=== PATIENT | female | born 1965 | race Caucasian/White ===

== ENCOUNTER 2020-12-09 14:58 | Emergency (ER) | payer BC, OTHER ==
[~2020-12-09] VITALS: Ht 162.6 cm; Wt 94.5 kg
[2020-12-09] MEDS ORDERED: METO25TA4 PO (15:17)
[2020-12-09] MEDS ORDERED: LABETALOL 100MG/20ML VIAL IV STA (15:50)
[2020-12-09] MEDS ORDERED: ASPIRIN 81 MG CHEW TABLET PO ONE (15:50)
[2020-12-09] MEDS ORDERED: METOPROLOL TART 25 MG TABLET PO ONE (15:50)
[2020-12-09] MEDS ORDERED: LORazepam 2 MG/ML VIAL IV STA (15:50)
[2020-12-09] MEDS ORDERED: NS 1,000 ML IV SCH (15:50)
[2020-12-09 16:17] LABS: BASO # 0.1 10^3/uL (0.0-0.2); BASO % 0.6 % (0.0-1.0); EOS # 0.1 10^3/uL (0.0-0.5); EOS % 1.3 % (0.0-3.0); HEMATOCRIT 42.5 % (36.0-47.0); HEMOGLOBIN 14.5 g/dl (12.0-15.5); LYMPH # 1.6 10^3/uL (1.5-5.0); LYMPH % 17.4 % (24.0-44.0); MEAN CORPUSCULAR HEMOGLOBIN 29.2 pg (27.0-33.0); MEAN CORPUSCULAR HGB CONC 34.1 g/dl (32.0-36.5); MEAN CORPUSCULAR VOLUME 85.5 fl (80.0-96.0); MONO # 0.6 10^3/uL (0.0-0.8); MONO % 6.5 % (2.0-8.0); NEUTROPHILS # 6.7 10^3/uL (1.5-8.5); NEUTROPHILS % 73.9 % (36.0-66.0); PLATELET COUNT, AUTOMATED 295 10^3/uL (150-450); RED BLOOD COUNT 4.97 10^6/uL (4.00-5.40); WHITE BLOOD COUNT 9.1 10^3/uL (4.0-10.0)
--- NOTE | 2020-12-09 16:21 | REP ---
INDICATION: CHEST PAIN. COMPARISON: No comparison chest x-ray. TECHNIQUE: Portable upright AP chest radiograph. FINDINGS: The lungs are well inflated and free of infiltrate. Pleural angles are sharp. Heart size is normal. Pulmonary vasculature is not increased. EKG monitoring electrodes are seen. IMPRESSION: No active disease. <Electronically signed by Kwadwo Ruggiero > 12/09/20 [id number]
[2020-12-09 16:27] LABS: INR 0.88; PROTHROMBIN TIME 12.2 SECONDS (12.5-14.3)
[2020-12-09 16:39] VITALS: BP 166/107
[2020-12-09 16:45] LABS: ALBUMIN 3.8 GM/DL (3.2-5.2); ALT/SGPT 34 U/L (12-78); BILIRUBIN,DIRECT 0.1 MG/DL (0.0-0.2); BILIRUBIN,TOTAL 0.7 MG/DL (0.2-1.0); BLOOD UREA NITROGEN 18 MG/DL (7-18); CALCIUM LEVEL 9.8 MG/DL (8.5-10.1); CARBON DIOXIDE LEVEL 31 MEQ/L (21-32); CHLORIDE LEVEL 108 MEQ/L (98-107); CK-MB VALUE MASS < 1.0 NG/ML (<3.6); CPK CREATINE PHOSPHOKINASE 85 U/L (26-192); CREATININE FOR GFR 0.92 MG/DL (0.55-1.30); GLOMERULAR FILTRATION RATE > 60.0 (>51); GLUCOSE, FASTING 100 MG/DL (70-100); LIPASE 110 U/L (73-393); MB/CK RELATIVE INDEX 1.18 (< OR =4); NT-PRO BNP 54 PG/ML (<125); POTASSIUM SERUM 3.6 MEQ/L (3.5-5.1); SODIUM LEVEL 142 MEQ/L (136-145); TOTAL PROTEIN 7.9 GM/DL (6.4-8.2); TROPONIN I < 0.02 NG/ML (< 0.10)
[2020-12-09 17:30] VITALS: BP 130/87
--- NOTE | 2020-12-10 07:38 | ECGEPIP ---
[facility] - ED Test Date: 2020-12-09 Pat Name: RADHA GLOVER Department: Room: - Gender: Female [employer]: ROSE : 1965 Requested By: Julian Enriquez Order Number: [id number] Reading MD: Martha Villanueva Measurements Intervals [place] Rate: 96 P: 34 UT: 178 QRS: 2 QRSD: 72 T: 28 QT: 338 QTc: 427 Interpretive Statements Normal sinus rhythm Minimal voltage criteria for LVH, may be normal variant ( R in aVL ) Cannot rule out Anterior infarct , age undetermined No prior Electronically Signed on 12-10-2020 7:37:40 EDT by Martha Villanueva
== END 2020-12-09 17:55 | disposition home or self-care (01) ==
LOC: M ED 14:58
DX: F41.9 Anxiety disorder, unspecified (principal); I10 Essential (primary) hypertension; F33.9 Major depressive disorder, recurrent, unspecified; Z88.1 Allergy status to other antibiotic agents; Z88.2 Allergy status to sulfonamides; Z88.8 Allergy status to other drugs, medicaments and biological substances; Z79.899 Other long term (current) drug therapy
CPT/HCPCS: 36415; 71045; 80048; 80076; 82550; 82553; 83690; 83880; 84484; 85025; 85610; 93005; 93041; 94760; 96361; 96374; 96375; 99285; J2060

== ENCOUNTER 2022-01-28 11:44 | Emergency (ER) | payer BC, OTHER ==
[~2022-01-28] VITALS: Ht 162.6 cm; Wt 99.9 kg
[~2022-01-28 11:44] MED LIST: METO25TA4 PO
[2022-01-28] MEDS ORDERED: ESCITALOPRAM (11:54)
[2022-01-28] MEDS ORDERED: METO1TAB32 (11:54)
[2022-01-28 17:13] LABS: BASO % 0.8 % (0.0-1.0); EOS # 0.1 10^3/uL (0.0-0.5); EOS % 1.4 % (0.0-3.0); HEMATOCRIT 42.2 % (36.0-47.0); HEMOGLOBIN 14.1 g/dl (12.0-15.5); LYMPH # 0.6 10^3/uL (1.5-5.0); LYMPH % 11.8 % (24.0-44.0); MEAN CORPUSCULAR HGB CONC 33.4 g/dl (32.0-36.5); MEAN CORPUSCULAR VOLUME 86.7 fl (80.0-96.0); MONO # 0.4 10^3/uL (0.0-0.8); MONO % 9.1 % (2.0-8.0); NEUTROPHILS # 3.7 10^3/uL (1.5-8.5); NEUTROPHILS % 76.7 % (36.0-66.0); PLATELET COUNT, AUTOMATED 244 10^3/uL (150-450); RED BLOOD COUNT 4.87 10^6/uL (4.00-5.40); WHITE BLOOD COUNT 4.9 10^3/uL (4.0-10.0)
[2022-01-28 17:32] LABS: ALBUMIN 3.9 GM/DL (3.2-5.2); ALT/SGPT 31 U/L (12-78); BILIRUBIN,TOTAL 0.8 MG/DL (0.2-1.0); BLOOD UREA NITROGEN 7 MG/DL (7-18); CALCIUM LEVEL 9.9 MG/DL (8.5-10.1); CARBON DIOXIDE LEVEL 29 MEQ/L (21-32); CHLORIDE LEVEL 108 MEQ/L (98-107); CREATININE FOR GFR 0.72 MG/DL (0.55-1.30); GLOMERULAR FILTRATION RATE > 60.0 (>51); GLUCOSE, FASTING 95 MG/DL (70-100); POTASSIUM SERUM 3.9 MEQ/L (3.5-5.1); SODIUM LEVEL 141 MEQ/L (136-145); TOTAL PROTEIN 7.6 GM/DL (6.4-8.2)
[2022-01-28] MEDS ORDERED: LORazepam 0.5 MG TAB PO STA (17:48)
[2022-01-28 18:01] VITALS: BP 160/86
== END 2022-01-28 18:09 | disposition home or self-care (01) ==
LOC: M ED 11:44
DX: I10 Essential (primary) hypertension (principal); F41.9 Anxiety disorder, unspecified; K21.9 Gastro-esophageal reflux disease without esophagitis; F32.A Depression, unspecified; Z88.2 Allergy status to sulfonamides; Z88.1 Allergy status to other antibiotic agents